=== PATIENT | female | born 1985 | race Caucasian/White ===

== ENCOUNTER 2020-08-05 10:55 | Emergency (ER) | payer SELFPAY ==
[2020-08-05 11:01] VITALS: BP 118/83; PULSE 118; RESP 14; TEMP 36.9; O2SAT 100
--- NOTE | 2020-08-05 11:09 | ED.GENADUL_ITS ---
Discharge Plan Disposition Patient Disposition: HOME Condition: Fair Discharge Details Clinical Impression: Herpes, Tachycardia, Dehydration, Vaginal discharge Primary Care Provider: None,None ED Provider: Karime Hong Home Meds and New Rx's Prescriptions: New valacyclovir 1 gram tablet 1,000 mg PO BID Qty: 14 RF: 0 Discharge Instructions Instructions: Dehydration (ED), Viral Syndrome (ED) Additional Instructions: Please encourage water intake. May continue with Tylenol and ibuprofen as needed for discomfort. Your exam is most concerning for initial herpes outbreak. Please take the acyclovir as prescribed. If your symptoms begin to improve, please do the entire course. Your gonorrhea and Chlamydia testing are pending, we will contact you with any positive results. You may return at any point for continued exam including speculum exam, IV hydration and blood work. I would like for you to follow-up closely with [facility], please call [facility] on Friday to schedule follow-up appointment, number listed below. If you develop any new or worsening symptoms please seek care urgently once again Referrals: Sandhya Brumfield MD [ [facility] STAFF PHYSICIAN] - Discharge Data Discharge Date/Time-TO BE ENTERED AT DEPARTURE: 08/05/20 12:23 Medical Decision Making Patient is a pleasant 35 year old female presenting today with c/c of sore throat. She states that this started one week ago and felt like strep that she has had historically. She staes that she does nto like to seek medical care and that she self diagnosed hrself at home. Reports that initially she was febrile with chills, fatigue, malaise and diminished appetite. She states that while the sore throat has been improving, she now has lesions around her mouth. She is concerned for strep cellulitis. She has a new sexual partner x 1 month who was diagnosted with herpes. She states that he did have STI testing and states he was negative for everything else. She denies STI history herself. On exam, the lesions look consistent with herpes. She is now reporting lesions to nipples and buttock. She recently had her nipples pierced. No vaginal lesions but endorses yellow vaginal discharge that started at the same time. Deneis abdominal pain. States that her constitutional symptoms rojelio improving but htat the rash has conitnued to spread, particularly around/in her mouth and on her nipples. On exam, patinet appears nontoxic. She is tachycardic. She has raised lesions on erythematous base intraorally, extraorally, on nipples and buttock. Some intraorally as well as on nipples are ulcerated. Some have a more crusted center. Her exam is most consistent with herpes infection. Those near her anus appear to be healing, she states pain in this area is diminished from when it first started. Will send swab, largest and what appears to be newest lesion is on the left nipple, will send sample from this area. Patient refused speculum exam. She did allow for bimanual exam, she had no cervical motion tenderness. No abdominal pain. Yellow vaginal discharge was sent for GC and chlamydia testing. She declines further testing. She has not had a pap smear in many years. I discussed my cncern for her not having her routine exams as well as my concern for other STI currently causing symptoms. She continues to refuse exam. She has good personal insight and advises that she will have exam prior to becoming which sounds she would like soon. UPT negative. I advised IV hydration and lab evaluation, particularly with her tachycardia, and she has declined. She states I am nervous, HR is down some. Patient appears dehydrated. She understands my concerns of her current presenstaion and demonstrates capacity to decline these interventions. While patient is out of window for typical treatment, she continues to have spreading of her rash, treatment with Valacyclovir is appropriate. She does not have medical insurance, I have asked our rn transitional care to reach out to patient to assist with this. coupon given for the Valacycovir from [employer]. She was given return precautions. I advised she consider further exam with [facility], she will think about it. She understands that she can return any time for further treatment. Strict return precautions given. All ofher questions/concerns were addressed. We will call her with results from STI testing. Advised safe sex practices and that she should obstain while her infection is flairing. All of her quesitons and concerns were addressed, she is in agreemtnw with this plan. HPI General Mode of arrival: ambulatory . Date/Time Provider Initiated Documentation: 08/05/20 11:09 . Limitations to Documentation: no limitations . Information obtained by: patient and RN notes reviewed . History of Present Illness 35 year old F presents to the emergency department with the chief complaint of sore throat, rash to mouth, nipples and buttock, described as moderate, with intensity rated at 5. Quality is described as burning, and is localized to the mouth, chest and buttocks. Patient reports no radiation. Patient started experiencing this week(s) (1) and it has been constant. No relieving factors improve symptom(s), No exacerbating factors reported . Patient notes fever/chills (subjective fevers, chills), loss of appetite and rash; denies chest pain, cough, headaches, nausea/vomiting and shortness of breath. Patient did receive the following treatments prior to arrival, none Related Data Home Medications Medication Instructions Recorded Confirmed valacyclovir 1,000 mg PO BID #14 tab 08/05/20 Previous Rx's Medication Instructions Recorded valacyclovir 1,000 mg PO BID #14 tab 08/05/20 Allergies Allergy/AdvReac Type Severity Reaction Status Date / Time No Known Allergies Allergy Unverified 08/05/20 11:06 General Stated Complaint: Sorethroat ROSE: 4 Review of Systems Constitutional Constitutional: Reports as per HPI, Reports chills, Reports fatigue, Reports fever(s) (resolved), Denies headache(s) and Reports malaise Eyes Eyes: Reports as per HPI, Denies eye discharge and Denies irritation ENT Ears, Nose, Mouth, and Throat: Reports as per HPI and Denies headache(s) Cardiovascular Cardiovascular: Reports as per HPI, Denies chest pain and Denies dyspnea Respiratory Respiratory: Reports as per HPI, Denies cough and Denies dyspnea Gastrointestinal Gastrointestinal: Reports as per HPI, Denies abdominal pain, Denies change in bowel habits, Denies nausea and Denies vomiting Integumentary/Breasts Skin/Breast: Reports as per HPI and Reports rash Neurologic Neurologic: Reports as per HPI and Denies headache(s) Endocrine Endocrine: Reports fatigue [facility] Social History Smoking/Tobacco Use Status: Never Alcohol Intake: never Substance use type: does not use Do you feel safe at home: Yes Exam Const General: cooperative, healthy appearing, comfortable, no acute distress, well developed and well groomed Nutritional Appearance: average body habitus and well nourished Orientation: alert and awake [facility] Head: normal to inspection, normocephalic and atraumatic Ears: hearing grossly normal bilaterally, external ears normal and TM's normal bilaterally General nose exam: external nose normal and nares normal Nose image: 1. focal area with scattered lesions on lips. Lesions are crusted lesions on a red base consistent with herpetic lesions Face and sinus: abnormal facial exam (lesions as above, tender to palpation), sinuses nontender and face symmetric Mouth: abnormal oral mucosae (scattered lesions in different stages of healing, pale), lip abnormal (lesions noted as described), tongue normal, oropharynx normal and moist mucous membranes Teeth and gingiva: dentition normal Throat: posterior oropharynx normal, tonsils normal and uvula midline Eyes General: appearance normal, both eyes and all related structures Neck Neck: normal visual inspection, full ROM, no lymphadenopathy and no meningeal signs Chest Breast inspection: abnormal inspection of the breast (lesions to nipples as described above) Resp Effort & Inspection: normal respiratory effort, able to speak in complete sentences and no respiratory distress Auscultation: clear to auscultation bilaterally, no rales, no rhonchi and no wheezes Cardio Rate: regular rate Rhythm: regular rhythm Heart Sounds: S1 normal and S2 normal GI Inspection: normal to inspection Palpation: soft, no hepatosplenomegaly and nontender Rectal Exam - female: abnormal visual inspection (lesions as described above around rectal opening, appear more well healed ) External Female Exam: abnormal external appearance (small amount of yellow vaginal discharge noted), no erythema, no tenderness externally, no external swelling, no lesions, no lacerations and no ecchymosis Speculum Exam - Vagina: abnormal appearance of the vagina (patient declined exam) Speculum Exam - Cervix: no masses and nontender Bimanual Exam- Vagina & Uterus: normal bimanual exam, normal palpation, No tender and no cervical motion tenderness Bimanual Exam- Adnexa, other: normal adnexae Female genitals images: 1. areas of lesions. Scattered with red bases. None are open. Appear to be healing, she reports minimal pain at this time Back/Spine/Pelvis Back: no CVA tenderness Skin Rashes: rashes noted (as above to mouth, nipples and buttock) Neuro General: patient alert and patient awake Cognition: normal cognition Speech: speech normal Gait: normal gait Psych Appearance: grossly normal and well kempt Mental Status: mental status grossly normal Speech and Movement: speech and movement normal Course Vital Signs Vital signs: Vital Signs Temperature 36.9 C 08/05/20 11:01 Pulse 118 H 08/05/20 11:01 Respiratory Rate 14 08/05/20 11:01 Blood Pressure 118/83 08/05/20 11:01 Pulse Oximetry 100 08/05/20 11:01 Temperature 36.9 C 08/05/20 11:01 Temperature Source Temporal Artery Scan 08/05/20 11:01 Pulse 118 H 08/05/20 11:01 Respiratory Rate 14 08/05/20 11:01 Blood Pressure 118/83 08/05/20 11:01 Blood Pressure Position Sitting 08/05/20 11:01 Pulse Oximetry 100 08/05/20 11:01 Oxygen Delivery Method Room Air 08/05/20 11:01 Oxygen Flow Rate 0 08/05/20 11:01 Pain Level 5 08/05/20 11:01
[2020-08-05 12:11] VITALS: PULSE 101
--- NOTE | 2020-08-05 18:11 | NUR.NOTE ---
Referral to Care Management to establish PCP.Nursing Note:
[2020-08-07 14:30] LABS: HSV 1 DNA Result Positive (Negative); HSV 2 DNA Result Negative (Negative)
--- NOTE | 2020-08-08 09:12 | PDOC.ERCMPRO ---
- If Service Date Differs Date of service: 08/08/20 Time of Service: 09:12 Care Management Progress Note Elicia is seen in the ED on 08/05/2020 for a rash, tachycardia, dehydration, and vaginal discharge. At the request of CAS Sahu, ED provider, SAAD coordinates a referral to Lily Peters np, on-call provider, of [facility], to assist Elicia in obtaining a follow up appointment and in establishing care with a PCP. SAAD also coordinates a referral to [facility] for assistance with health insurance, as Elicia is currently uninsured.
== END 2020-08-05 12:23 | disposition home or self-care (01) ==
LOC: ER 12:24
PROVIDERS: Emergency Provider Physician Assistant
DX: E86.0 Dehydration (principal); B00.9 Herpesviral infection, unspecified; R00.0 Tachycardia, unspecified; N89.8 Other specified noninflammatory disorders of vagina
CPT/HCPCS: 81025; 87491; 87529; 87591; 87880; 99283; 99284

== ENCOUNTER 2020-11-22 09:11 | Outpatient (CLI) | payer OTHER, SELFPAY ==
[2020-11-22 10:11] LABS: HCG Quant, Pregnancy 21976 mIU/mL (1-3)
== END 2020-11-22 09:12 | disposition home or self-care (01) ==
PROVIDERS: Visit Provider Nurse Practitioner Women's Health
DX: O20.9 Hemorrhage in early pregnancy, unspecified (principal)
CPT/HCPCS: 36415; 84702

== ENCOUNTER 2020-11-24 01:40 | Outpatient (CLI) | payer OTHER, SELFPAY ==
[2020-11-24 09:52] LABS: HCG Quant, Pregnancy 28885 mIU/mL (1-3)
== END 2020-11-24 01:41 | disposition home or self-care (01) ==
LOC: LBO 01:41
PROVIDERS: Visit Provider Nurse Practitioner Women's Health
DX: O20.0 Threatened abortion (principal)
CPT/HCPCS: 36415; 84702

== ENCOUNTER 2020-12-18 04:23 | Outpatient (CLI) | payer OTHER, SELFPAY ==
[2020-12-18 11:17] LABS: Abs Immature Grans 0.01 10^3/uL (0.0-0.06); Absolute Basophil Count 0.02 10^3/uL (0.0-0.2); Absolute Eosinophil Count 0.07 10^3/uL (0.0-0.7); Absolute Lymphocyte Count 1.54 10^3/uL (1.2-3.4); Absolute Monocyte Count 0.53 10^3/uL (0.1-0.8); Absolute Neutrophil Count 5.25 10^3/uL (1.2-6.7); Basophils % 0.3; Eosinophils % 0.9; HCT 37.6 % (36.0-46.0); Immature Grans % 0.1; Lymphocytes % 20.8; MCH 30.6 pg (27.0-33.0); MCHC 34.6 % (32.0-36.0); MCV 88.5 fL (80-95); MPV 8.9 fL (8.0-11.0); Monocytes % 7.1; Neutrophils % 70.8; Nucleated RBC 0 %; Platelet Count 239 10^3/uL (130-400); RBC 4.25 10^6/uL (3.93-5.22); RDW 15.2 % (11.7-14.6); RDW-SD 49.6 fL; WBC 7.42 10^3/uL (4.4-10.8)
[2020-12-18 12:25] LABS: TSH (W/Ref FT4) 3.78 uIU/mL (0.36-3.74)
[2020-12-18 22:30] LABS: Thyroperoxidase Antibody <28 U/mL (<=60)
[2020-12-19 11:32] LABS: Hepatitis B Surface Ag Negative (Negative); Hepatitis C Ab w Rflx HCV PCR Negative (Negative)
[2020-12-19 12:59] LABS: Rubella IgG Ab (UVM) Positive (See Note)
[2020-12-19 15:43] LABS: Syphilis Total Ab w/Reflex Nonreactive (Nonreactive)
[2020-12-25 09:47] LABS: HIV-1/2 Ag & Ab Screen Negative (Negative)
[2020-12-25 09:48] LABS: Varicella IgG Antibody Positive (See Note)
== END 2020-12-18 04:24 | disposition home or self-care (01) ==
LOC: LBO 04:23
PROVIDERS: Visit Provider Advanced Practice Midwife
DX: Z34.91 Encounter for supervision of normal pregnancy, unspecified, first trimester (principal); Z3A.10 10 weeks gestation of pregnancy; R94.6 Abnormal results of thyroid function studies
CPT/HCPCS: 36415; 86787; 86803; 86850; 86900; 86901; 87340; 87389; 84439; 84443; 85025; 86376; 86762; 86780

== ENCOUNTER 2020-12-18 11:47 | Outpatient (REF) | payer OTHER, SELFPAY ==
--- NOTE | 2020-12-18 10:00 | PAPFT_PTH ---
PATIENT: Elicia Monteiro LOC: [facility] U#:[id number] AGE/SX: 35/F ROOM: RE12/18/[address]: Layla Lilly CNM : 1985 BED: DIS: 12/18/2020 SPEC #: [id number] RECD: 12/18/20 13:23 STATUS: JESSICA REQ #: [id number] LA[place]: 12/18/20 10:[address]: Layla Lilly DEPT: [facility] Cytology RECD BY: Gayathri Moreira ENTERED: 12/18/20 13:24 SP TYPE: PAPFT OTHR DR: Unknown,Unknown Tissues: 1 - CX/ENDOCX FOR PAP SMEARS Procedures: PAP THIN PREP/[facility] Screening HPV DNA PROBE Comments: [id number]
[2020-12-18 17:00] LABS: *AMPHETAMINES SCREEN URINE Negative (Negative); *BARBITURATES SCREEN URINE Negative (Negative); *BENZODIAZEPINES SCREEN URINE Negative (Negative); Cannabinoids THC Negative (Negative); Cocaine Screen,Urine Negative (Negative); METHADONE URINE SCREEN Negative (Negative); OPIATES URINE SCREEN Negative (Negative)
[2020-12-18 17:09] LABS: Tricyclic Antidepressants Negative (Negative)
[2020-12-19 14:27] LABS: Chlamydia Result Negative (Negative); GC Result Negative (Negative)
[2020-12-22 11:25] LABS: Buprenorphine Negative ng/mL (Cutoff: 5.0); Norbuprenorphine Negative ng/mL (Cutoff: 2.5)
== END 2020-12-18 11:48 | disposition home or self-care (01) ==
LOC: LBN 11:47
PROVIDERS: Visit Provider Advanced Practice Midwife
DX: Z34.91 Encounter for supervision of normal pregnancy, unspecified, first trimester (principal); Z11.3 Encounter for screening for infections with a predominantly sexual mode of transmission; Z12.4 Encounter for screening for malignant neoplasm of cervix; Z11.51 Encounter for screening for human papillomavirus (HPV)
CPT/HCPCS: 80307; 87491; 87591; 88142; 87086; 87480; 87510; 87624; 87660

== ENCOUNTER 2021-01-18 02:11 | Outpatient (CLI) | payer OTHER, SELFPAY ==
[2021-01-18 09:12] LABS: HCT 35.7 % (36.0-46.0); HGB 12.5 g/dL (11.2-15.7); MCH 32.2 pg (27.0-33.0); MPV 8.9 fL (8.0-11.0); Platelet Count 211 10^3/uL (130-400); RBC 3.88 10^6/uL (3.93-5.22); RDW-SD 47.4 fL
[2021-01-18 10:11] LABS: TSH (W/Ref FT4) 2.36 uIU/mL (0.36-3.74)
== END 2021-01-18 02:12 | disposition home or self-care (01) ==
LOC: LBO 02:11
PROVIDERS: Visit Provider Advanced Practice Midwife
DX: O09.522 Supervision of elderly multigravida, second trimester (principal); O26.892 Other specified pregnancy related conditions, second trimester; R51.9 Headache, unspecified
CPT/HCPCS: 36415; 85027; 84443